=== PATIENT | female | born 1965 | race African-American/Black ===

== ENCOUNTER 2017-01-07 08:32 | Emergency (ER) | payer OTHER ==
[~2017-01-07] VITALS: Ht 182.9 cm; Wt 120.0 kg
[~2017-01-07 08:32] MED LIST: ALBU1AER INH; AMLO10 PO; BENA40TA PO; CLON.2 PO; GLIP10TA6 PO; GLUC10TA3 PO; OMEP20TA OR
[2017-01-07 08:34] VITALS: BP 201/104; PULSE 120; RESP 20; TEMP 98.2; O2SAT 94
[2017-01-07] MEDS ORDERED: GLIP10TA6 PO (09:05)
[2017-01-07] MEDS ORDERED: CLON.2 PO (09:05)
[2017-01-07] MEDS ORDERED: BENA40TA PO (09:05)
[2017-01-07] MEDS ORDERED: METF500T PO (09:05)
[2017-01-07] MEDS ORDERED: OMEP20TA PO (09:05)
[2017-01-07] MEDS ORDERED: AMLO10 PO (09:05)
[2017-01-07] MEDS ORDERED: ACETAMINOPHEN/HYDROcodone 325 MG/5 MG TAB PO ONE (09:15)
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
[2017-01-07 09:48] VITALS: BP 145/82; PULSE 76; RESP 17; O2SAT 99
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
[2017-01-07] MEDS ORDERED: NORC5TAB PO (09:59)
[2017-01-07 10:10] VITALS: RESP 16
== END 2017-01-07 10:16 | disposition home or self-care (01) ==
LOC: NEPC 08:32
DX: M25.531 Pain in right wrist (principal); R07.81 Pleurodynia; Y92.410 Unspecified street and highway as the place of occurrence of the external cause; I10 Essential (primary) hypertension; E11.9 Type 2 diabetes mellitus without complications; V49.50XA Passenger injured in collision with unspecified motor vehicles in traffic accident, initial encounter; Z79.84 Long term (current) use of oral hypoglycemic drugs
CPT/HCPCS: 71010; 73100; 99284